=== PATIENT | female | born 1995 | race Two or more races ===

== ENCOUNTER 2016-08-08 01:49 | Emergency (ER) | payer BC ==
[~2016-08-08] VITALS: Ht 175.3 cm; Wt 107.0 kg
[2016-08-08] MEDS ORDERED: MORPHINE SULF INJ 2 MG/ML SYRINGE 1ML IM ONE (03:45)
[2016-08-08] MEDS ORDERED: ONDANSETRON HCL 4 MG/2 ML VIAL IM ONE (03:45)
[2016-08-08 03:46] VITALS: BP 119/83
== END 2016-08-08 04:30 | disposition home or self-care (01) ==
LOC: ER 01:51
DX: S16.1XXA Strain of muscle, fascia and tendon at neck level, initial encounter (principal); M62.838 Other muscle spasm; X50.1XXA Overexertion from prolonged static or awkward postures, initial encounter; Y93.89 Activity, other specified; Y99.8 Other external cause status; Y92.89 Other specified places as the place of occurrence of the external cause
CPT/HCPCS: 72125; 96372; 99284; J2270; J2405

== ENCOUNTER 2017-03-15 07:50 | Emergency (ER) | payer BC ==
[~2017-03-15] VITALS: Ht 175.3 cm; Wt 104.3 kg
[2017-03-15] MEDS ORDERED: ACETAMINOPHEN 325 MG TAB PO ONE (08:30)
[2017-03-15] MEDS ORDERED: PANTOPRAZOLE 40 MG/10 ML VIAL IV STA (09:06)
[2017-03-15] MEDS ORDERED: SODIUM CHLORIDE 0.9% 1,000 ML IVB ONE (09:06)
[2017-03-15 09:14] LABS: Basophils # (auto) 0 uL; Basophils % (auto) 0.2 % (0.0-2.0); CONDITION Y; Eosinophils # (auto) 0.1 uL; Eosinophils % (auto) 0.9 % (0.0-7.0); Hemoglobin 12.5 g/dL (12.2-16.2); Lymphocytes # (auto) 0.7 uL; Mean Corpuscular Hemoglobin 27.1 pg (28.0-32.0); Mean Corpuscular Hgb Conc. 33.8 g/dL (32.0-36.0); Mean Corpuscular Volume 80.2 fL (80.0-100.0); Mean Platelet Volume 10.2 fL (7.4-10.4); Monocytes # (auto) 0.3 uL; Monocytes % (auto) 3.9 % (0.0-12.0); Neutrophils # (auto) 6.5 uL; Platelet Count (auto) 297 10^3/uL (140-450); Red Cell Distribution Width 14.7 % (11.6-16.0); White Blood Cell 7.5 10^3/uL (4.4-10.8)
[2017-03-15] MEDS ORDERED: ONDANSETRON HCL 4 MG/2 ML VIAL IV ONE (09:15)
[2017-03-15] MEDS ORDERED: MORPHINE SULFATE 4 MG/ML SYRG IV ONE (09:15)
[2017-03-15 09:17] LABS: Urine Bilirubin Negative (Negative); Urine Blood TRACE /uL (Negative); Urine Color Yellow (Yellow); Urine Glucose Normal (Normal); Urine Ketone Negative (Negative); Urine Nitrite Negative (Negative); Urine RBC 1 /hpf (0 - 4); Urine Squamous Epithelial Cell FEW /hpf (<5); Urine Urobilinogen Normal (Negative)
[2017-03-15 09:34] LABS: Albumin 4.2 g/dL (3.4-5.0); BUN/Creatinine Ratio 9.5; Bilirubin, Total 0.2 mg/dL (0.2-1.0); Calcium 9.1 mg/dL (8.5-10.1); Potassium 3.7 mmol/L (3.5-5.1); Total Protein 9.3 g/dL (6.4-8.2)
[2017-03-15 09:37] LABS: Magnesium 2.3 mg/dL (1.6-2.6)
[2017-03-15 11:28] VITALS: BP 108/67
== END 2017-03-15 11:36 | disposition home or self-care (01) ==
LOC: ER 07:50
DX: K29.70 Gastritis, unspecified, without bleeding (principal); J45.909 Unspecified asthma, uncomplicated
CPT/HCPCS: 36415; 76705; 80053; 81001; 82150; 83690; 83735; 84702; 85025; 94761; 96361; 96374; 96375; 99285; C9113; J2270; J2405; J7030